=== PATIENT | female | born 1980 | race Caucasian/White ===

== ENCOUNTER 2018-04-09 10:44 | Emergency (ER) | payer SELFPAY ==
[~2018-04-09] VITALS: Wt 79.8 kg
[~2018-04-09 10:44] MED LIST: AMBIEN10 M1 PO; AMOXICILLIN875 MG PO; AUGMENTIN 875875 MG PO; CEPHALEXIN500 M1 PO; COUMADIN4 M1 PO; DOXYCYCLINE MO100 MG PO; HYDROCODONE BIT1 T11 PO; LIDEX 0.05% CRE15 GM T; MOTRIN800 MG PO; NAPROSYN500 MG PO
[2018-04-09 11:02] LABS: BASO # 0.1 10*3/uL (0.0-0.1); BASO % 0.4 % (0.0-1.0); EOS # 0.2 10*3/uL (0.0-0.4); HEMATOCRIT 40.6 % (37.0-47.0); HEMOGLOBIN 13.7 g/dl (12.0-16.0); LYMPH # 2.5 10*3/uL (1.3-4.4); LYMPH % 21.6 % (27.0-41.0); MEAN CELL VOLUME 88.6 fl (81.0-99.0); MEAN CORPUSCULAR HGB 29.9 pg (27.0-31.0); MEAN CORPUSCULAR HGB CONC 33.7 g/dl (33.0-37.0); MEAN PLATELET VOLUME 9.8 fl (9.6-12.3); MONO # 0.9 10*3/uL (0.1-1.0); MONO % 7.4 % (3.0-9.0); NEUT % 68.3 % (47.0-73.0); PLATELET COUNT AUTOMATED 303 10*3/uL (130-400); RED BLOOD COUNT 4.58 10*6/uL (4.10-5.10); RED CELL DISTRI WIDTH 13.5 % (0-14.5); WHITE BLOOD COUNT 11.7 10*3/uL (4.8-10.8)
[2018-04-09 11:17] LABS: ALKALINE PHOSPHATASE 70 U/L (45-117); BUN 6 mg/dl (7-24); CHLORIDE 109 mmol/L (98-107); CREATININE 0.79 mg/dL (0.55-1.02); LIPASE 158 U/L (73-393); POTASSIUM 3.7 mmol/L (3.5-5.1); SGOT/AST 21 IU/L (3-35); SGPT/ALT 17 U/L (12-78); SODIUM 143 mmol/L (136-145); TOTAL PROTEIN 7.8 gm/dL (6.4-8.2)
[2018-04-09 12:03] LABS: BILIRUBIN NEGATIVE (NEGATIVE); BLOOD 2+ (NEGATIVE); CLARITY CLEAR (CLEAR); COLOR YELLOW (YELLOW); GLUCOSE NEGATIVE (NEGATIVE); KETONE NEGATIVE (NEGATIVE); LEUKO ESTERASE NEGATIVE (NEGATIVE); NITRITE NEGATIVE (NEGATIVE); SPECIFIC GRAVITY <= 1.005 (1.005-1.030); UROBILINOGEN 0.2 E.U./dl (0.2-1.0)
[2018-04-09 12:23] LABS: BACTERIA TRACE
[2018-04-09] MEDS ORDERED: ZOFRAN4 MG PO (12:42)
[2018-04-09] MEDS ORDERED: NAPROSYN500 MG PO (12:43)
[2018-04-09 13:01] VITALS: BP 117/78
== END 2018-04-09 13:13 | disposition home or self-care (01) ==
LOC: ED 10:44
PROVIDERS: Nurse Practitioner Family
DX: R10.31 Right lower quadrant pain (principal); R03.0 Elevated blood-pressure reading, without diagnosis of hypertension; Z88.1 Allergy status to other antibiotic agents; Z79.01 Long term (current) use of anticoagulants